=== PATIENT | female | born 1965 | race Caucasian/White ===

== ENCOUNTER → 2017-08-15 | Emergency (ER) | payer OTHER ==
[~2017-08-15] VITALS: Ht 160 cm; Wt 70.8 kg
[~2017-08-15] MED LIST: CEFTRIAXONE SOD 1 GM VIAL IV ONE; ENOXAPARIN SOD INJ 40 MG/0.4 ML SYR SC STA; HYDROCODONE/APAP 10MG-325MG TAB ONE; HYDROCODONE/APAP 10MG-325MG TAB PO ONE; IOPAMIDOL 370 MG/ML 200 ML INFUS..BTL INJ ONE; SODIUM CHLORIDE 0.9% 1000ML 1,000 ML IV STA; SODIUM CHLORIDE 0.9% 1000ML 1,000 ML ONE; SODIUM CHLORIDE 0.9% 50ML 100 ML ONE
[2017-08-15 17:43] LABS: BILIRUBIN,URINE NEGATIVE (NEGATIVE); CLARITY,URINE CLEAR (CLEAR); COLOR,URINE YELLOW (YELLOW); KETONES,URINE NEGATIVE (NEGATIVE); LEUKOCYTE ESTERASE ,URINE NEGATIVE (NEGATIVE); NITRITE,URINE NEGATIVE (NEGATIVE); PROTEIN,URINE DIPSTICK NEGATIVE (NEGATIVE); URINE UROBILINOGEN 0.2 mg/dL (0.2 - 1)
[2017-08-15 18:31] LABS: RBC,URINE 0-5 /HPF (0-5); WBC,URINE (MAN) 0-5 /HPF (0-5)
[2017-08-15 18:32] LABS: BACTERIA,URINE FEW /HPF; EPITHELIAL CELLS,URINE FEW /LPF
--- NOTE | 2017-08-15 19:21 | Diagnostic Imaging Report ---
Examination: Single AP view of the chest. COMPARISON: None. INDICATION: Chest pain DISCUSSION: Lines/tubes: Right chest port with tip overlying the superior vena cava. Lungs: The lungs are well inflated and clear. There is no evidence of pneumonia or pulmonary edema. Pleura: There is no pleural effusion or pneumothorax. Heart and mediastinum: The heart and the mediastinum are unremarkable. Bones and soft tissues: No acute bony abnormalities. IMPRESSION: 1. No acute cardiopulmonary abnormalities. Signed by: Dr. Jonathan Crooks M.D. on 08/15/2017 7:18 PM
[2017-08-15 22:50] LABS: BASOPHILS # (AUTO) 0.2 (0.0-0.1); BASOPHILS % 0.9 % (0.0-1.0); EOSINOPHILS # (AUTO) 0.1 (0.0-0.4); EOSINOPHILS % 0.5 % (0.0-6.0); HEMATOCRIT 42.3 % (34.2-44.1); HEMOGLOBIN 13.5 g/dL (12.0-16.0); LYMPHOCYTES # (AUTO) 1.6 (1.0-3.2); LYMPHOCYTES % 9.1 % (18.0-39.1); MEAN CORPUSCULAR HEMOGLOBIN 27.3 pg (28-32); MEAN CORPUSCULAR HGB CONC 31.9 g/dL (31-35); MEAN CORPUSCULAR VOLUME 85.5 fL (81-99); MONOCYTES # (AUTO) 0.2 (0.2-0.8); MONOCYTES % 1.1 % (4.4-11.3); NEUTROPHILS # (AUTO) 14.9 (2.1-6.9); NEUTROPHILS % 87.2 % (38.7-80.0); PLATELET COUNT 232 x10e3/uL (140-360); RED BLOOD COUNT 4.95 x10e6/uL (3.6-5.1); RED CELL DISTRIBUTION WIDTH 17.3 % (11.7-14.4)
[2017-08-15 22:54] LABS: INR 0.83; PROTHROMBIN TIME 11.8 seconds (11.9-14.5)
[2017-08-15 22:55] LABS: PARTIAL THROMBOPLASTIN TIME 30.1 seconds (23.8-35.5)
[2017-08-15 23:05] LABS: ALANINE AMINOTRANSFERASE 22 IU/L (0-55); ALBUMIN 3.8 g/dL (3.5-5.0); ALBUMIN/GLOBULIN RATIO 0.9 (0.8-2.0); ALKALINE PHOSPHATASE 125 IU/L (40-150); ANION GAP 12.5 mmol/L (8-16); BLOOD UREA NITROGEN 12 mg/dL (7-26); BUN/CREATININE RATIO 16 (6-25); CALCIUM 9.6 mg/dL (8.4-10.2); CARBON DIOXIDE 26 mmol/L (22-29); CHLORIDE 105 mmol/L (98-107); CREATINE KINASE 26 IU/L (29-168); CREATININE, SERUM 0.73 mg/dL (0.57-1.11); EST GLOMERULAR FILTRATION RATE > 60 ML/MIN (60-); GLUCOSE 92 mg/dL (74-118); LIPASE 18 U/L (8-78); POTASSIUM 3.5 mmol/L (3.5-5.1); SODIUM 140 mmol/L (136-145)
--- NOTE | 2017-08-16 00:25 | Diagnostic Imaging Report ---
EXAM: CT CHEST W DATE: 08/15/2017 11:15 PM Time stamp on exam: 2355 hours INDICATION: Chest pain, nausea and vomiting COMPARISON: None TECHNIQUE: Multidetector CT scanning of the chest was performed. Coronal and sagittal multiplanar reformations were obtained. PE protocol performed. IV Contrast: 100 cc Isovue-370 CTDIvol has been reviewed. It is below the limits set by the Radiation Protocol Committee (RPC). FINDINGS: LUNGS AND AIRWAYS: The trachea and major bronchi are unremarkable. No consolidations or edema. Nonspecific bilateral upper lung peripheral cystic/emphysematous changes. Nonspecific 6 mm nodule superior segment of the left lower lobe (series 6, image 49). PLEURA: No effusions or pneumothorax. HEART, MEDIASTINUM, VESSELS: The heart is within normal size limits. No thoracic aortic aneurysm. No evidence of a pulmonary embolism. Distal aspect of a right internal jugular vein tunneled chest port terminates at the atriocaval junction. There are several enlarged prevascular and aorticopulmonary window masses/enlarged lymph nodes, the largest two measure 4 cm and 3 cm. Several subcentimeter left supraclavicular lymph nodes. Enlarged left internal mammary chain lymph node measuring 1.3 cm in short diameter. UPPER ABDOMEN: Unremarkable. MUSCULOSKELETAL: Nonspecific 1 cm nodule in the posterior lateral aspect of the right breast. IMPRESSION: 1. No evidence of a pulmonary embolism. 2. Enlarged mediastinal lymph nodes measuring up to 4 cm, likely related to reported history of Hodgkin's lymphoma. 3. Nonspecific 6 mm left lower lobe pulmonary nodule. 4. Nonspecific 1 cm nodule in the posterior lateral aspect of the right breast. Recommend correlation with mammography. Signed by: Dr. Kimberli Bates M.D. on 08/16/2017 12:21 AM
[2017-08-16 01:24] VITALS: BP 140/77
== END | disposition home or self-care (01) ==
LOC: ER 16:38
DX: R07.89 Other chest pain (principal); J09.X2 Influenza due to identified novel influenza A virus with other respiratory manifestations; Z85.71 Personal history of Hodgkin lymphoma; Z87.19 Personal history of other diseases of the digestive system
CPT/HCPCS: 36415; 71010; 71260; 80053; 81001; 82550; 82553; 83690; 83880; 84484; 84702; 85025; 85379; 85610; 85730; 87086; 87400; 93005; 96360; 99284; J7030